=== PATIENT | female | born 1990 | race African-American/Black ===

== ENCOUNTER 2016-12-24 21:27 | Emergency (ER) | payer BC ==
[~2016-12-24] VITALS: Ht 162.5 cm; Wt 88.5 kg
[~2016-12-24 21:27] MED LIST: AMOX/CLAV POT 81 TAB PO; ANTIBIOTIC; AUGMENTIN 875 M1 TAB PO; BACTROBAN OINT22 GM PO; BIRTH CONTROL1 EAC1; BIRTH CONTROL1 EAC1 PO; CIPRO500 MG PO; CYCLOBENZAPRINE10 MG PO; FLUCONAZOLE100 MG PO; MIRALAX POWDER17 G1 PO; MOTRIN800 MG PO; NAPROSYN500 MG PO; NKHM; PERCOCET 325 MG1 TA7 PO; ZITHROMAX Z PA250 MG PO; ZOFRAN ODT4 MG SL; ZOFRAN4 MG PO
[2016-12-24 21:39] VITALS: BP 157/91
[2016-12-24] MEDS ORDERED: CEPHALEXIN500 M1 PO (21:57)
[2016-12-24] MEDS ORDERED: DIFLUCAN150 MG PO (21:57)
== END 2016-12-24 22:08 | disposition home or self-care (01) ==
LOC: ED 21:27
DX: N75.0 Cyst of Bartholin's gland (principal); Z88.6 Allergy status to analgesic agent

== ENCOUNTER 2017-09-01 21:56 | Emergency (ER) | payer BC ==
[~2017-09-01] VITALS: Ht 162.5 cm; Wt 95.3 kg
[~2017-09-01 21:56] MED LIST changes: +CEPHALEXIN500 M1 PO; +DIFLUCAN150 MG PO
[2017-09-01 22:10] VITALS: BP 143/75
[2017-09-01 22:48] LABS: BASO # 0.1 10*3/uL (0.0-0.1); BASO % 0.5 % (0.0-1.0); EOS # 0.1 10*3/uL (0.0-0.4); EOS % 0.7 % (1.0-4.0); HEMATOCRIT 34.1 % (37.0-47.0); HEMOGLOBIN 11.4 g/dl (12.0-16.0); LYMPH # 3.5 10*3/uL (1.3-4.4); LYMPH % 28.9 % (27.0-41.0); MEAN CELL VOLUME 77.7 fl (81.0-99.0); MEAN CORPUSCULAR HGB CONC 33.4 g/dl (33.0-37.0); MONO # 0.7 10*3/uL (0.1-1.0); MONO % 5.8 % (3.0-9.0); NEUT # 7.7 10*3/uL (2.3-7.9); NEUT % 63.4 % (47.0-73.0); PLATELET COUNT AUTOMATED 290 10*3/uL (130-400); RED BLOOD COUNT 4.39 10*6/uL (4.10-5.10); RED CELL DISTRI WIDTH 13.3 % (0-14.5); WHITE BLOOD COUNT 12.1 10*3/uL (4.8-10.8)
[2017-09-01 22:56] LABS: BILIRUBIN NEGATIVE (NEGATIVE); BLOOD 3+ (NEGATIVE); CLARITY SL CLOUDY (CLEAR); COLOR YELLOW (YELLOW); GLUCOSE NEGATIVE (NEGATIVE); KETONE 1+ (NEGATIVE); LEUKO ESTERASE NEGATIVE (NEGATIVE); NITRITE NEGATIVE (NEGATIVE); SPECIFIC GRAVITY 1.015 (1.005-1.030); UROBILINOGEN 0.2 E.U./dl (0.2-1.0)
[2017-09-01 22:58] LABS: ACT PARTIAL THROMBO TIME 24.7 SECONDS (20.8-31.5)
[2017-09-01 23:01] LABS: EPITHELIAL CELLS 40-45
[2017-09-01 23:02] LABS: BACTERIA TRACE
[2017-09-01 23:04] LABS: BUN 8 mg/dl (7-24); CHLORIDE 104 mmol/L (98-107); CREATININE 0.53 mg/dL (0.55-1.02); POTASSIUM 3.5 mmol/L (3.5-5.1); SODIUM 137 mmol/L (136-145)
[2017-09-01] MEDS ORDERED: ZOFRAN ODT4 MG SL (23:12)
== END 2017-09-01 23:25 | disposition home or self-care (01) ==
LOC: ED 21:56
PROVIDERS: Physician Assistant
DX: R11.2 Nausea with vomiting, unspecified (principal); F10.10 Alcohol abuse, uncomplicated; Z88.5 Allergy status to narcotic agent; Z88.8 Allergy status to other drugs, medicaments and biological substances

== ENCOUNTER → 2017-09-29 | Outpatient (CLI) | payer BC ==
[2017-09-29 20:01] LABS: BASO # 0.1 10*3/uL (0.0-0.1); BASO % 0.5 % (0.0-1.0); EOS # 0.1 10*3/uL (0.0-0.4); EOS % 0.9 % (1.0-4.0); HEMOGLOBIN 11.9 g/dl (12.0-16.0); LYMPH # 3.9 10*3/uL (1.3-4.4); LYMPH % 33.8 % (27.0-41.0); MEAN CELL VOLUME 80.4 fl (81.0-99.0); MEAN CORPUSCULAR HGB 25.9 pg (27.0-31.0); MEAN CORPUSCULAR HGB CONC 32.2 g/dl (33.0-37.0); MEAN PLATELET VOLUME 10.7 fl (9.6-12.3); MONO # 0.7 10*3/uL (0.1-1.0); MONO % 5.7 % (3.0-9.0); NEUT # 6.9 10*3/uL (2.3-7.9); NEUT % 58.8 % (47.0-73.0); PLATELET COUNT AUTOMATED 290 10*3/uL (130-400); RED CELL DISTRI WIDTH 13.5 % (0-14.5); WHITE BLOOD COUNT 11.6 10*3/uL (4.8-10.8)
== END | disposition home or self-care (01) ==
LOC: LAB 19:43
PROVIDERS: Family Medicine
DX: F41.8 Other specified anxiety disorders (principal); E55.9 Vitamin D deficiency, unspecified

== ENCOUNTER 2018-08-16 18:03 | Emergency (ER) | payer BC ==
[~2018-08-16] VITALS: Ht 160 cm; Wt 74.8 kg
[2018-08-16 18:04] VITALS: BP 128/85
[2018-08-16 18:21] LABS: BILIRUBIN NEGATIVE (NEGATIVE); BLOOD 3+ (NEGATIVE); CLARITY CLOUDY (CLEAR); COLOR YELLOW (YELLOW); GLUCOSE NEGATIVE (NEGATIVE); KETONE 2+ (NEGATIVE); LEUKO ESTERASE TRACE (NEGATIVE); NITRITE NEGATIVE (NEGATIVE); SPECIFIC GRAVITY >= 1.030 (1.005-1.030); UROBILINOGEN 0.2 E.U./dl (0.2-1.0)
[2018-08-16 18:28] LABS: BASO # 0.1 10*3/uL (0.0-0.1); BASO % 0.6 % (0.0-1.0); EOS # 0.1 10*3/uL (0.0-0.4); EOS % 0.9 % (1.0-4.0); HEMATOCRIT 39.1 % (37.0-47.0); HEMOGLOBIN 12.9 g/dl (12.0-16.0); LYMPH # 1.3 10*3/uL (1.3-4.4); LYMPH % 14.9 % (27.0-41.0); MEAN CELL VOLUME 82.3 fl (81.0-99.0); MEAN CORPUSCULAR HGB 27.2 pg (27.0-31.0); MEAN PLATELET VOLUME 11.1 fl (9.6-12.3); MONO # 0.6 10*3/uL (0.1-1.0); MONO % 6.5 % (3.0-9.0); NEUT # 6.7 10*3/uL (2.3-7.9); NEUT % 76.9 % (47.0-73.0); PLATELET COUNT AUTOMATED 247 10*3/uL (130-400); RED BLOOD COUNT 4.75 10*6/uL (4.10-5.10); RED CELL DISTRI WIDTH 14.2 % (0-14.5); WHITE BLOOD COUNT 8.7 10*3/uL (4.8-10.8)
[2018-08-16 18:31] LABS: BACTERIA 3+; EPITHELIAL CELLS 21-30; MUCOUS 2+
[2018-08-16 18:32] LABS: RBC 51-100 rbc/hpf (0-2)
[2018-08-16 18:44] LABS: ALBUMIN 3.9 gm/dl (3.1-4.5); ALKALINE PHOSPHATASE 50 U/L (45-117); BUN 13 mg/dl (7-24); CHLORIDE 106 mmol/L (98-107); CREATININE 0.72 mg/dL (0.55-1.02); LIPASE 88 U/L (73-393); POTASSIUM 3.8 mmol/L (3.5-5.1); SGOT/AST 12 IU/L (3-35); SGPT/ALT 23 U/L (12-78); SODIUM 142 mmol/L (136-145); TOTAL PROTEIN 7.8 gm/dL (6.4-8.2)
[2018-08-16] MEDS ORDERED: PHENERGAN25 M3 PO (19:34)
== END 2018-08-16 20:00 | disposition home or self-care (01) ==
LOC: ED 18:03
PROVIDERS: Physician Assistant
DX: R11.2 Nausea with vomiting, unspecified (principal); R19.7 Diarrhea, unspecified; R25.2 Cramp and spasm; Z88.6 Allergy status to analgesic agent; Z79.899 Other long term (current) drug therapy; Z79.2 Long term (current) use of antibiotics

== ENCOUNTER 2020-07-14 13:15 | Emergency (ER) | payer BC ==
[~2020-07-14] VITALS: Ht 162.5 cm; Wt 77.1 kg
[~2020-07-14 13:15] MED LIST changes: +PHENERGAN25 M3 PO
[2020-07-14 13:49] VITALS: BP 141/98
[2020-07-14] MEDS ORDERED: ZOFRAN4 MG PO (16:19)
== END 2020-07-14 19:32 | disposition home or self-care (01) ==
LOC: ED 13:15
DX: R11.10 Vomiting, unspecified (principal); Z88.8 Allergy status to other drugs, medicaments and biological substances; Z79.899 Other long term (current) drug therapy

== ENCOUNTER 2025-01-03 09:56 | Emergency (ER) | payer BC ==
[~2025-01-03] VITALS: Ht 160 cm; Wt 77.1 kg
[2025-01-03 11:05] VITALS: BP 113/70
[2025-01-03] MEDS ORDERED: MIRALAX POWDER17 G1 PO (15:15)
== END 2025-01-03 15:40 | disposition home or self-care (01) ==
LOC: ED 09:56
DX: K56.41 Fecal impaction (principal); G43.909 Migraine, unspecified, not intractable, without status migrainosus; E66.9 Obesity, unspecified; Z88.6 Allergy status to analgesic agent; Z79.899 Other long term (current) drug therapy; Z68.30 Body mass index [BMI] 30.0-30.9, adult

== ENCOUNTER → 2025-01-28 | Outpatient (CLI) | payer BC | END | disposition home or self-care (01) | LOC: RAD 14:26 | PROVIDERS: ATTEND Nurse Practitioner Family | DX: M54.2 Cervicalgia (principal) ==